=== PATIENT | female | born 1935 | race Caucasian/White ===

== ENCOUNTER 2019-10-16 15:27 | Inpatient (IN) | payer OTHER, MEDICAID ==
[~2019-10-16] VITALS: Ht 160 cm; Wt 54.4 kg
[2019-10-16] MEDS ORDERED: SODIUM CHLORIDE 0.9% 1,000 ML IV ONE ×2 (16:06→19:28)
[2019-10-16] MEDS ORDERED: INSULIN REGULAR (HUMULIN R) 300UNITS/3ML SUBCUT NR (17:00)
[2019-10-16] MEDS ORDERED: INSULIN REGULAR (HUMULIN R) UD 100 UNITS/ML SYR SUBCUT ONE (17:00)
[2019-10-16 18:15] LABS: BASOPHILS % 0.2 % (0.0-2.0); EOSINOPHILS % 2.6 % (0.0-5.0); HEMATOCRIT. 36.5 % (36.0-48.0); HEMOGLOBIN. 12.5 g/dL (12.0-16.0); LYMPHOCYTES % 16.6 % (20.0-50.0); MEAN CORPUSCULAR HEMOGLOBIN 30.2 pg (28.0-32.0); MEAN PLATELET VOLUME 8.1 fl (7.4-10.4); MONOCYTES % 5.4 % (2.0-8.0); NEUTROPHILS % 75.2 % (40.0-76.0); PLATELET 239 x1000/uL (130-400); RED BLOOD CELL COUNT 4.14 mill/uL (4.2-5.4); RED CELL DISTRIBUTION WIDTH 13.4 % (11.6-14.6)
[2019-10-16 18:20] LABS: CHLORIDE 104 mEq/L (98-107)
[2019-10-16] MEDS ORDERED: KETOROLAC 30MG/ML VIAL IV STA (19:28)
[2019-10-16 23:31] VITALS: BP 140/80
[2019-10-16] MEDS ORDERED: INSU100I24 SQ (23:38)
[2019-10-16] MEDS ORDERED: ENAL10TA MT (23:38)
[2019-10-16] MEDS ORDERED: METF-415 MT (23:38)
[2019-10-17] VITALS: BP 140/80
[2019-10-17] MEDS: SODIUM CHLORIDE 0.45% 1,000 ML IV SCH (00:30)
[2019-10-17] MEDS ORDERED: CLONIDINE 0.1MG TABLET PO PRN (00:30)
[2019-10-17] MEDS ORDERED: DEXTROSE 50% WATER 50ML SYRINGE IV PRN (00:30)
[2019-10-17 04:00] VITALS: BP 145/90
[2019-10-17 06:24] LABS: HEMOGLOBIN 12.1 g/dL (12.0-16.0); MEAN CORPUSCULAR HEMOGLOBIN 30.4 pg (28.0-32.0); MEAN CORPUSCULAR VOLUME 87.8 fL (81.0-99.0); PLATELET 253 x1000/uL (130-400); RED BLOOD CELL COUNT 3.98 mill/uL (4.2-5.4)
[2019-10-17 06:56] LABS: CHLORIDE 108 mEq/L (98-107)
[2019-10-17 07:03] LABS: LDL CHOLESTEROL 95 mg/dL (5-100)
[2019-10-17 07:06] LABS: HDL CHOLESTEROL 60 mg/dL (40-59)
[2019-10-17 08:00] VITALS: BP 139/81
[2019-10-17] MEDS: BLOOD SUGAR DIAGNOSTIC STRIP TEST SCH ×4 (08:00→21:03)
[2019-10-17] MEDS: INSULIN LISPRO 100 UNITS/ML SUBCUT SCH ×4 (08:00→21:00)
[2019-10-17] MEDS: PANTOPRAZOLE 40MG DR TABLET PO SCH (08:24)
[2019-10-17] MEDS: LACTULOSE 20G/30ML UDC PO SCH ×2 (10:34→19:07)
[2019-10-17 12:00] VITALS: BP 118/77
[2019-10-17 16:00] VITALS: BP 130/79
[2019-10-17] MEDS ORDERED: BISACODYL 10MG SUPP PR PRN (17:00)
[2019-10-17] MEDS ORDERED: HYDRALAZINE 20MG/ML VIAL IV PRN (17:00)
[2019-10-17] MEDS ORDERED: ACETAMINOPHEN 325MG TABLET PO PRN (17:00)
[2019-10-17] MEDS ORDERED: MORPHINE SULFATE 2 MG/ML CPJ (NOT FOR IM USE) IV PRN (17:00)
[2019-10-17] MEDS ORDERED: ACETAMINOPHEN 650MG SUPP PR PRN (17:00)
[2019-10-17] MEDS ORDERED: DIPHENHYDRAMINE 50MG/ML VIAL IV PRN (17:00)
[2019-10-17] MEDS ORDERED: BISACODYL 10MG SUPP PR NR (17:18)
[2019-10-17] MEDS ORDERED: CEFTRIAXONE 1 G PREMIX 50 ML IV SCH (20:00)
[2019-10-17 20:38] LABS: PROTHROMBIN TIME 10.5 sec (9.6-11.0)
[2019-10-18] VITALS (7 sets, daily range): BP systolic 98–151; BP diastolic 54–81
[2019-10-18] MEDS: SODIUM CHLORIDE 0.45% 1,000 ML IV SCH ×2 (00:05→16:30)
[2019-10-18] MEDS: METOCLOPRAMIDE HCL 10MG/2ML VIAL IV SCH ×3 (00:06→15:17)
[2019-10-18 05:13] LABS: HEMATOCRIT 36.3 % (36.0-48.0); HEMOGLOBIN 12.4 g/dL (12.0-16.0); MEAN CORPUSCULAR HEMOGLOBIN 30.1 pg (28.0-32.0); PLATELET 260 x1000/uL (130-400); RED BLOOD CELL COUNT 4.12 mill/uL (4.2-5.4); RED CELL DISTRIBUTION WIDTH 13.4 % (11.6-14.6)
[2019-10-18] MEDS: BLOOD SUGAR DIAGNOSTIC STRIP TEST SCH ×3 (06:00→17:52)
[2019-10-18 06:14] LABS: CHLORIDE 106 mEq/L (98-107)
[2019-10-18] MEDS: PANTOPRAZOLE 40MG DR TABLET PO SCH (09:17)
[2019-10-18] MEDS: LACTULOSE 20G/30ML UDC PO SCH ×2 (09:43→18:08)
[2019-10-18] MEDS: INSULIN LISPRO 100 UNITS/ML SUBCUT SCH ×3 (09:53→19:05)
[2019-10-18] MEDS ORDERED: DOCUSATE SODIUM 250MG CAPSULE PO NR (10:30)
[2019-10-18] MEDS ORDERED: NA PHOS,M-B/NA PHOS,DI-BA ENEMA 118ML PR NR (10:30)
[2019-10-18] MEDS: METFORMIN HCL 850MG TABLET PO SCH ×2 (11:17→17:52)
[2019-10-18] MEDS ORDERED: SIMETHICONE 80MG TABLET CHEW PO PRN (13:00)
[2019-10-18] MEDS: SIMETHICONE 80MG TABLET CHEW PO SCH ×2 (15:19→17:52)
== END 2019-10-18 20:00 | disposition home or self-care (01) | DRG 389 ==
LOC: ER 15:27 → 7WST 19:29 → MERGE 19:29 → ENRESERV 21:21
PROVIDERS: ADMIT Internal Medicine; ATTEND Internal Medicine
DX: K56.7 Ileus, unspecified (principal); M48.54XA Collapsed vertebra, not elsewhere classified, thoracic region, initial encounter for fracture; E44.0 Moderate protein-calorie malnutrition; E11.65 Type 2 diabetes mellitus with hyperglycemia; E86.0 Dehydration; K74.60 Unspecified cirrhosis of liver; I10 Essential (primary) hypertension; K56.41 Fecal impaction
CPT/HCPCS: 36415; 71045; 72128; 74018; 74176; 76700; 80048; 80053; 80061; 82962; 83036; 84484; 85025; 85027; 93005; 93970; 97162; 99285; J0696; J1815; J2765; J7030

== ENCOUNTER 2020-03-17 12:59 | Inpatient (IN) | payer OTHER, MEDICAID ==
[~2020-03-17] VITALS: Ht 160 cm; Wt 50.8 kg
[~2020-03-17 12:59] MED LIST: BLOO-158; BLOO-1810; ENAL10TA MT; INSU100I24; INSU100I24 SQ; LANC-1022; LISI10TA5; METF-415 MT; MULT-9; NEED-123; POLY510P31; ZINC1CAP2
[2020-03-17] MEDS ORDERED: SODIUM CHLORIDE 0.9% 1,000 ML IV ONE (13:30)
[2020-03-17 14:23] LABS: BASOPHILS % 0.4 % (0.0-2.0); EOSINOPHILS % 0.2 % (0.0-5.0); HEMATOCRIT. 31.8 % (36.0-48.0); HEMOGLOBIN. 10.1 g/dL (12.0-16.0); LYMPHOCYTES % 16.5 % (20.0-50.0); MEAN CORPUSCULAR VOLUME 91.6 fL (81.0-99.0); MEAN PLATELET VOLUME 7.7 fl (7.4-10.4); MONOCYTES % 5.7 % (2.0-8.0); NEUTROPHILS % 77.2 % (40.0-76.0); PLATELET 577 x1000/uL (130-400); RED BLOOD CELL COUNT 3.48 mill/uL (4.2-5.4); RED CELL DISTRIBUTION WIDTH 18.6 % (11.6-14.6)
[2020-03-17 14:28] LABS: CHLORIDE 118 mEq/L (98-107)
[2020-03-17] MEDS ORDERED: LEVOFLOXACIN 750MG PREMIX 150 ML IV ONE (15:30)
[2020-03-17] MEDS ORDERED: CLONIDINE 0.1MG TABLET PO PRN (17:00)
[2020-03-17] MEDS ORDERED: ACETAMINOPHEN 650MG/20.3ML UDC GT PRN (17:00)
[2020-03-17] MEDS ORDERED: MAGNESIUM/ALUMINUM HYDROXIDE/SIMETHICONE 30ML UDC PO PRN (17:00)
[2020-03-17] MEDS ORDERED: HYDROCODONE/ACETAMINOPHEN 5/325MG TABLET PO PRN (17:00)
[2020-03-17] MEDS ORDERED: ONDANSETRON HCL 4MG/2ML INJ IV PRN (17:00)
[2020-03-17] MEDS: BLOOD SUGAR DIAGNOSTIC STRIP TEST SCH ×2 (17:00→23:00)
[2020-03-17] MEDS ORDERED: IPRATROPIUM/ALBUTEROL 0.5-3(2.5)MG/3ML NEB NEB PRN (17:00)
[2020-03-17] MEDS ORDERED: DOCUSATE SODIUM 100MG CAPSULE PO PRN (17:00)
[2020-03-17] MEDS ORDERED: ACETAMINOPHEN 650MG SUPP PR PRN (17:00)
[2020-03-17] MEDS ORDERED: GUAIFENESIN 200MG/10ML SUGAR FREE UDC PO PRN (17:00)
[2020-03-17] MEDS ORDERED: DIPHENHYDRAMINE 50MG/ML VIAL IV PRN (17:00)
[2020-03-17] MEDS ORDERED: CEFTRIAXONE 1 G PREMIX 50 ML IV SCH (17:00)
[2020-03-17] MEDS ORDERED: LORAZEPAM 0.5MG TABLET PO PRN (17:00)
[2020-03-17] MEDS ORDERED: DEXTROSE 50% WATER 50ML SYRINGE IV PRN (17:00)
[2020-03-17] MEDS: SODIUM CHLORIDE 0.45% 1,000 ML IV SCH (17:00)
[2020-03-17] MEDS ORDERED: NA PHOS,M-B/NA PHOS,DI-BA ENEMA 118ML PR PRN (17:00)
[2020-03-17 17:19] LABS: PROTHROMBIN TIME 10.6 sec (9.6-11.0)
[2020-03-17] MEDS ORDERED: CEFTRIAXONE 1 G PREMIX 50 ML IV NR (17:30)
[2020-03-17] MEDS: INSULIN LISPRO 100 UNITS/ML SUBCUT SCH ×2 (18:58→23:00)
[2020-03-17] MEDS: ENOXAPARIN 40MG/0.4ML SYR SUBCUT SCH (19:42)
[2020-03-17 21:05] LABS: CLARITY URINE CLEAR (CLEAR); COLOR URINE YELLOW (YELLOW); KETONES URINE NEGATIVE (NEGATIVE); LEUKOCYTE ESTERASE URINE 1+ (NEGATIVE); NITRITE URINE NEGATIVE (NEGATIVE); OCCULT BLOOD URINE NEGATIVE (NEGATIVE); PROTEIN URINE TRACE (NEGATIVE); SPECIFIC GRAVITY URINE 1.031 (1.005-1.030); UROBILINOGEN URINE 0.2 E.U./dL (0.2-1.0)
[2020-03-17 21:29] LABS: *AMPHETAMINES SCREEN URINE NEGATIVE (NEGATIVE); *BARBITURATES SCREEN URINE NEGATIVE (NEGATIVE); *BENZODIAZEPINES SCREEN URINE NEGATIVE (NEGATIVE); *COCAINE SCREEN URINE NEGATIVE (NEGATIVE)
[2020-03-17 21:30] LABS: CANNABINOID URINE SCREEN NEGATIVE (NEGATIVE); METHADONE URINE SCREEN NEGATIVE (NEGATIVE); OPIATES URINE SCREEN PRESUMTIVE POSITIVE (NEGATIVE); PHENCYCLIDINE URINE SCREEN NEGATIVE (NEGATIVE)
[2020-03-17 22:05] VITALS: BP 120/62
[2020-03-17] MEDS: FAMOTIDINE 20MG TABLET PO SCH (23:00)
[2020-03-18] VITALS: BP 116/76
[2020-03-18 04:00] VITALS: BP 144/87
[2020-03-18] MEDS: SODIUM CHLORIDE 0.45% 1,000 ML IV SCH ×2 (05:32→17:28)
[2020-03-18 06:04] LABS: CHLORIDE 123 mEq/L (98-107)
[2020-03-18 06:08] LABS: BASOPHILS % 0.3 % (0.0-2.0); EOSINOPHILS % 0.5 % (0.0-5.0); HEMATOCRIT. 29.6 % (36.0-48.0); HEMOGLOBIN. 9.4 g/dL (12.0-16.0); LYMPHOCYTES % 20.6 % (20.0-50.0); MEAN CORPUSCULAR HEMOGLOBIN 29.1 pg (28.0-32.0); MEAN CORPUSCULAR VOLUME 91.8 fL (81.0-99.0); MEAN PLATELET VOLUME 8.1 fl (7.4-10.4); NEUTROPHILS % 71.6 % (40.0-76.0); PLATELET 522 x1000/uL (130-400); RED BLOOD CELL COUNT 3.23 mill/uL (4.2-5.4); RED CELL DISTRIBUTION WIDTH 18.7 % (11.6-14.6)
[2020-03-18 06:18] LABS: LDL CHOLESTEROL 93 mg/dL (5-100)
[2020-03-18 06:19] LABS: T4 FREE 1.28 ng/dL (0.76-1.46)
[2020-03-18 06:20] LABS: HDL CHOLESTEROL 34 mg/dL (40-59)
[2020-03-18] MEDS: BLOOD SUGAR DIAGNOSTIC STRIP TEST SCH ×4 (06:46→21:00)
[2020-03-18] MEDS: INSULIN LISPRO 100 UNITS/ML SUBCUT SCH ×4 (07:50→22:55)
[2020-03-18 08:00] VITALS: BP 126/79
[2020-03-18 12:00] VITALS: BP 148/79
[2020-03-18] MEDS: CEFTRIAXONE 1,000 MG in DEXTROSE 5% WATER 50 ML IV SCH (14:24)
[2020-03-18 14:54] LABS: BG CARBOXYHEMOGLOBIN 0.1 % (0.5-1.5); BG DEOXYHEMOGLOBIN 4.6 % (0.0-5.0); BG FRACTION INSPIRED OXYGEN 21; BG HCO3 ACT 22.7 mmol/L (22.0-26.0); BG METHEMOGLOBIN 0.4 % (0.0-1.5); BG OXYGEN SATURATION 95.4 % (92.0-98.5); BG OXYHEMOGLOBIN 94.9 % (94.0-97.0); BG PH 7.497 (7.350-7.450); BG SAMPLE SITE RIGHT BRACHIAL; BG TOTAL HEMOGLOBIN 9.3 g/dL (12.0-18.0); BG VENT MODE ROOM AIR
[2020-03-18 16:00] VITALS: BP 116/77
[2020-03-18] MEDS: FLUCONAZOLE 200 MG/100ML BAG 100 ML IV SCH (16:37)
[2020-03-18] MEDS ORDERED: CEFTRIAXONE 1,000 MG in DEXTROSE 5% WATER 50 ML IV SCH (18:00)
[2020-03-18 18:11] LABS: CHLORIDE 120 mEq/L (98-107)
[2020-03-18] MEDS: ENOXAPARIN 40MG/0.4ML SYR SUBCUT SCH (18:49)
[2020-03-18 20:36] VITALS: BP 134/77
[2020-03-18] MEDS: FAMOTIDINE 20MG TABLET PO SCH (22:43)
[2020-03-19] VITALS (8 sets, daily range): BP systolic 99–149; BP diastolic 50–81
[2020-03-19] MEDS: SODIUM CHLORIDE 0.45% 1,000 ML IV SCH ×2 (02:08→13:36)
[2020-03-19] MEDS: BLOOD SUGAR DIAGNOSTIC STRIP TEST SCH ×3 (05:54→17:20)
[2020-03-19] MEDS: INSULIN LISPRO 100 UNITS/ML SUBCUT SCH ×3 (05:58→19:05)
[2020-03-19 06:32] LABS: CHLORIDE 118 mEq/L (98-107)
[2020-03-19 06:34] LABS: BASOPHILS % 0.4 % (0.0-2.0); EOSINOPHILS % 1.5 % (0.0-5.0); HEMATOCRIT. 28.5 % (36.0-48.0); LYMPHOCYTES % 25.8 % (20.0-50.0); MEAN CORPUSCULAR VOLUME 91.7 fL (81.0-99.0); MEAN PLATELET VOLUME 7.7 fl (7.4-10.4); MONOCYTES % 7.2 % (2.0-8.0); NEUTROPHILS % 65.1 % (40.0-76.0); PLATELET 482 x1000/uL (130-400); RED BLOOD CELL COUNT 3.11 mill/uL (4.2-5.4); RED CELL DISTRIBUTION WIDTH 18.4 % (11.6-14.6)
[2020-03-19] MEDS ORDERED: CIPR-264 GT (12:43)
[2020-03-19] MEDS ORDERED: FLUC100T GT (12:43)
[2020-03-19] MEDS: CEFTRIAXONE 1,000 MG in DEXTROSE 5% WATER 50 ML IV SCH (13:49)
[2020-03-19] MEDS: FLUCONAZOLE 200 MG/100ML BAG 100 ML IV SCH (15:27)
[2020-03-19] MEDS ORDERED: ENOXAPARIN 30MG/0.3ML SYR SUBCUT SCH (16:00)
== END 2020-03-19 20:15 | disposition home or self-care (01) | DRG 637 ==
LOC: ER 13:34 → 6WST 16:34 → MERGE 16:34 → EDBEDREQTM 16:41 → EDBEDREQ 16:41 → SUPCPDRO 17:13 → ENRESERV 19:49
PROVIDERS: ADMIT Internal Medicine; ATTEND Internal Medicine
DX: E11.65 Type 2 diabetes mellitus with hyperglycemia (principal); J18.9 Pneumonia, unspecified organism; G93.40 Encephalopathy, unspecified; K94.23 Gastrostomy malfunction; E87.0 Hyperosmolality and hypernatremia; N39.0 Urinary tract infection, site not specified; B49 Unspecified mycosis; R65.10 Systemic inflammatory response syndrome (SIRS) of non-infectious origin without acute organ dysfunction; R47.02 Dysphasia; F03.90 Unspecified dementia, unspecified severity, without behavioral disturbance, psychotic disturbance, mood disturbance, and anxiety; I10 Essential (primary) hypertension; E78.5 Hyperlipidemia, unspecified; D64.9 Anemia, unspecified; E83.52 Hypercalcemia; E86.0 Dehydration; E78.00 Pure hypercholesterolemia, unspecified; R79.89 Other specified abnormal findings of blood chemistry; R00.0 Tachycardia, unspecified; Z79.899 Other long term (current) drug therapy; Z79.4 Long term (current) use of insulin
CPT/HCPCS: 36415; 36600; 71045; 80048; 80053; 80061; 80305; 81003; 82375; 82805; 82962; 83036; 84439; 84443; 84484; 85025; 92610; 93005; 93306; 93970; 96365; 99285; J0696; J1450; J1650; J1815; J1956; J7030; J7060